=== PATIENT | male | born 1995 | race Caucasian/White ===

== ENCOUNTER 2024-02-28 14:42 | Emergency (ER) | payer OTHER ==
[2024-02-28] MEDS ORDERED: Rabies Immune Globulin/PF (HyperRAB) 300 UNIT/ML 5 ML SDV IM ONE (15:23)
[2024-02-28] MEDS: Rabies Vaccine (Avian) 2.5 Unit Inj Kit IM ONE (16:12)
[2024-02-28] MEDS: Rabies Immune Globulin/PF (HyperRAB) 300 UNIT/ML 5 ML SDV IM ONE (16:36)
== END 2024-02-28 16:41 | disposition home or self-care (01) ==
LOC: JP.ED 14:42
DX: S61.451A Open bite of right hand, initial encounter (principal); F17.210 Nicotine dependence, cigarettes, uncomplicated; W55.81XA Bitten by other mammals, initial encounter; Y92.003 Bedroom of unspecified non-institutional (private) residence as the place of occurrence of the external cause; Z23 Encounter for immunization; Z86.16 Personal history of COVID-19
CPT/HCPCS: 90375; 90471; 90675; 96372; 99283-25